=== PATIENT | female | born 1935 | race Caucasian/White ===

== ENCOUNTER 2018-03-25 16:47 | Outpatient (REF) | payer MEDICARE, BC, SELFPAY ==
[2018-03-25 19:34] LABS: HGB 12.5 g/dL (12.0-15.5); Mean Corp. HGB Concentration 33.8 g/dL (32.0-36.0); Mean Corpuscular Hemoglobin 32.1 pg (27.0-33.0); Mean Corpuscular Volume 94.9 fL (80-95); Mean Platelet Volume 12.5 fL (8.0-11.0); Platelet Count 191 x1000/uL (130-400); RBC Distribution Width 13.6 % (11.7-14.6); White Blood Cell Count 6.93 k/cumm (4.4-10.8)
[2018-03-25 19:49] LABS: ALT 23 U/L (12-78); Anion Gap 9.3 mmol/L (3-11); BUN 24 mg/dL (7-18); CO2 29.7 mmol/L (21.0-32.0); CREATININE 1.04 mg/dL (0.55-1.02); Chloride 105 mmol/L (98-107); Estimated GFR 50.86 (mL/min/1.73m2); Glucose 120 mg/dL (70-100); LDL CHOLESTEROL 96 mg/dL (<100); Potassium 3.9 mmol/L (3.5-5.1); Sodium 144 mmol/L (136-145)
== END 2018-03-25 17:07 ==
LOC: NCHCN 16:47
PROVIDERS: PCP Internal Medicine; Visit Provider Internal Medicine
DX: E78.5 Hyperlipidemia, unspecified (principal); I10 Essential (primary) hypertension; I65.23 Occlusion and stenosis of bilateral carotid arteries
CPT/HCPCS: 80048; 83721; 85027; 84460

== ENCOUNTER 2018-09-12 10:39 | Outpatient (REF) | payer MEDICARE, BC, SELFPAY ==
[2018-09-12 19:26] LABS: Abs Immature Grans 0.02 k/cumm (0.0-0.09); Absolute Basophil Count 0.04 k/cumm (0.0-0.2); Absolute Eosinophil Count 0.31 k/cumm (0.0-0.7); Absolute Lymphocyte Count 1.39 k/cumm (1.2-3.4); Absolute Monocyte Count 0.76 k/cumm (0.11-0.7); Absolute Neutrophil Count 6.73 k/cumm (1.2-6.7); Basophils % 0.4; Eosinophils % 3.4; HGB 13.5 g/dL (12.0-15.5); Immature Grans % 0.2; Mean Corp. HGB Concentration 32.9 g/dL (32.0-36.0); Mean Corpuscular Hemoglobin 31.4 pg (27.0-33.0); Mean Corpuscular Volume 95.3 fL (80-95); Mean Platelet Volume 12.4 fL (8.0-11.0); Monocytes % 8.2; Neutrophils % 72.8; Platelet Count 236 x1000/uL (130-400); RBC Distribution Width 13.6 % (11.7-14.6); White Blood Cell Count 9.25 k/cumm (4.4-10.8)
[2018-09-12 19:41] LABS: Anion Gap 9.4 mmol/L (3-11); BUN 21 mg/dL (7-18); CO2 28.6 mmol/L (21.0-32.0); CREATININE 0.93 mg/dL (0.55-1.02); Calcium 9.7 mg/dL (8.5-10.1); Chloride 103 mmol/L (98-107); Estimated GFR 57.72 (mL/min/1.73m2); Glucose 112 mg/dL (70-100); Potassium 3.9 mmol/L (3.5-5.1); Sodium 141 mmol/L (136-145)
[2018-09-12 21:16] LABS: ESR 25 MM/HR (0-30)
== END 2018-09-12 10:59 ==
LOC: NCHCN 10:39
PROVIDERS: PCP Internal Medicine; Visit Provider Internal Medicine
DX: I10 Essential (primary) hypertension (principal); E78.5 Hyperlipidemia, unspecified; M65.332 Trigger finger, left middle finger; Z98.61 Coronary angioplasty status
CPT/HCPCS: 80048; 85652; 85025

== ENCOUNTER 2019-09-11 20:09 | Outpatient (REF) | payer MEDICARE, BC, SELFPAY ==
[2019-09-11 20:18] LABS: D-Dimer 1077 ng/mlFEU (<500)
[2019-09-11 20:22] LABS: Hemoglobin A1C 6.3 % (3.8-5.6)
[2019-09-11 20:30] LABS: ALT 27 U/L (14-59); AST 22 U/L (15-37); Albumin 3.8 g/dL (3.4-5.0); Alkaline Phosphatase 71 U/L (46-116); Anion Gap 8.5 mmol/L (3-11); BUN 18 mg/dL (7-18); Bilirubin, Total 0.4 mg/dL (0.2-1.0); CO2 27.5 mmol/L (21.0-32.0); CREATININE 1.09 mg/dL (0.55-1.02); Calcium 9.5 mg/dL (8.5-10.1); Chloride 104 mmol/L (98-107); Estimated GFR 47.94 (mL/min/1.73m2); Glucose 131 mg/dL (74-106); NT-proBNP 238 pg/mL (<300); Potassium 3.5 mmol/L (3.5-5.1); Sodium 140 mmol/L (136-145); Total Protein 6.7 g/dL (6.4-8.2)
== END 2019-09-11 20:29 ==
LOC: NCHCN 20:09
PROVIDERS: PCP Internal Medicine; Visit Provider Internal Medicine
DX: R73.09 Other abnormal glucose (principal); I10 Essential (primary) hypertension; I42.8 Other cardiomyopathies; R60.0 Localized edema; F17.210 Nicotine dependence, cigarettes, uncomplicated
CPT/HCPCS: 80053; 83036; 83880; 85379

== ENCOUNTER 2020-02-26 14:19 | Outpatient (REF) | payer MEDICARE, BC, SELFPAY ==
[2020-02-26 19:51] LABS: TSH 2.89 uIU/mL (0.36-3.74); Vitamin B12 271 pg/mL (193-986)
== END 2020-02-26 14:39 ==
LOC: NCHCN 14:19
PROVIDERS: PCP Internal Medicine; Visit Provider Internal Medicine
DX: I25.5 Ischemic cardiomyopathy (principal); R73.09 Other abnormal glucose; G56.02 Carpal tunnel syndrome, left upper limb; I10 Essential (primary) hypertension
CPT/HCPCS: 82607; 84443

== ENCOUNTER 2020-04-02 14:20 | Outpatient (REF) | payer MEDICARE, BC, SELFPAY ==
--- NOTE | 2020-04-02 12:04 | SKI_PTH ---
PATIENT: Nay Mcknight LOC: [facility] U#:[id number] AGE/SX: 84/F ROOM: RE04/02/[address]: Jose Manuel Hatfield : 1935 BED: DIS: 04/02/2020 SPEC #: [id number] RECD: 04/02/20 18:15 STATUS: TONG REFrancisco #: [id number] DAVID: 04/02/20 12:[address]: Jose Manuel Hatfield DEPT: Surgical Specimen RECD BY: Tasia Stuart Tissues: 1 - SKIN BIOPSY(SHAVE/PUNCH) Procedures: SKIN LEVEL 4 Comments: [id number]
[2020-04-02 19:01] LABS: Abs Immature Grans 0.02 10^3/uL (0.0-0.06); Absolute Basophil Count 0.04 10^3/uL (0.0-0.2); Absolute Eosinophil Count 0.17 10^3/uL (0.0-0.7); Absolute Lymphocyte Count 1.21 10^3/uL (1.2-3.4); Absolute Neutrophil Count 5.92 10^3/uL (1.2-6.7); Basophils % 0.5; Eosinophils % 2.1; HCT 40.5 % (36.0-46.0); HGB 13.2 g/dL (11.2-15.7); Immature Grans % 0.3; Lymphocytes % 15.2; MCHC 32.6 % (32.0-36.0); MCV 95.1 fL (80-95); MPV 12.3 fL (8.0-11.0); Monocytes % 7.5; Neutrophils % 74.4; Nucleated RBC 0 %; Platelet Count 217 10^3/uL (130-400); RBC 4.26 10^6/uL (3.93-5.22); RDW 13.1 % (11.7-14.6); RDW-SD 45.7 fL; WBC 7.96 10^3/uL (4.4-10.8)
[2020-04-02 19:11] LABS: ALT 26 U/L (14-59); AST 17 U/L (15-37); Albumin 4.1 g/dL (3.4-5.0); Alkaline Phosphatase 83 U/L (46-116); Anion Gap 9.6 mmol/L (3-11); BUN 16 mg/dL (7-18); Bilirubin, Total 0.8 mg/dL (0.2-1.0); C-Reactive Protein 0.11 mg/dL (0.0-0.3); CO2 27.4 mmol/L (21.0-32.0); CREATININE 0.92 mg/dL (0.55-1.02); Calcium 9.6 mg/dL (8.5-10.1); Chloride 105 mmol/L (98-107); Glucose 112 mg/dL (74-106); Potassium 3.7 mmol/L (3.5-5.1); Sodium 142 mmol/L (136-145); Total Protein 7.1 g/dL (6.4-8.2)
[2020-04-02 19:45] LABS: ESR 15 mm/hr (0-30)
== END 2020-04-02 14:40 ==
LOC: NCHCN 14:20
PROVIDERS: PCP Internal Medicine; Visit Provider Internal Medicine
DX: L30.8 Other specified dermatitis (principal)
CPT/HCPCS: 80053; 85652; 85025; 86140; 88305

== ENCOUNTER 2020-11-18 12:55 | Outpatient (REF) | payer MEDICARE, BC, SELFPAY ==
[2020-11-18 19:22] LABS: HCT 36.7 % (36.0-46.0); HGB 11.9 g/dL (11.2-15.7); MCH 30.7 pg (27.0-33.0); MCHC 32.4 % (32.0-36.0); MCV 94.8 fL (80-95); MPV 13.5 fL (8.0-11.0); Platelet Count 208 10^3/uL (130-400); RBC 3.87 10^6/uL (3.93-5.22); RDW 13.2 % (11.7-14.6); RDW-SD 45.9 fL
[2020-11-18 19:23] LABS: ALT 38 U/L (14-59); AST 20 U/L (15-37); Albumin 3.9 g/dL (3.4-5.0); Alkaline Phosphatase 75 U/L (46-116); Anion Gap 8.4 mmol/L (3-11); BUN 23 mg/dL (7-18); Bilirubin, Total 0.6 mg/dL (0.2-1.0); CO2 27.6 mmol/L (21.0-32.0); CREATININE 0.9 mg/dL (0.55-1.02); Chloride 108 mmol/L (98-107); Estimated GFR 59.65 (mL/min/1.73m2); Glucose 97 mg/dL (74-106); Potassium 4.2 mmol/L (3.5-5.1); Sodium 144 mmol/L (136-145); Total Protein 7.1 g/dL (6.4-8.2)
== END 2020-11-18 12:56 | disposition home or self-care (01) ==
LOC: NCHCN 12:55
PROVIDERS: PCP Internal Medicine; Visit Provider Physician Assistant
DX: K92.1 Melena (principal); R19.7 Diarrhea, unspecified
CPT/HCPCS: 80053; 85027

== ENCOUNTER 2021-06-27 18:21 | Outpatient (REF) | payer MEDICARE, BC, SELFPAY ==
[2021-06-27 20:30] LABS: ESR 25 mm/hr (0-30)
[2021-06-27 20:40] LABS: Anion Gap 12.2 mmol/L (3-11); BUN 19 mg/dL (7-18); CO2 25.8 mmol/L (21.0-32.0); Calcium 9.7 mg/dL (8.5-10.1); Chloride 104 mmol/L (98-107); Estimated GFR 52.82 (mL/min/1.73m2); Glucose 107 mg/dL (74-106); Sodium 142 mmol/L (136-145)
[2021-06-28 18:22] LABS: Rheumatoid Factor <8.6 IU/mL (<12.0)
[2021-06-29 09:32] LABS: Cyclic Citrullinated Peptide <2.5 U/mL (<5.0)
[2021-06-30 14:22] LABS: ANA Interpretation Positive (Negative)
== END 2021-06-27 18:22 | disposition home or self-care (01) ==
LOC: NCHCN 18:21
PROVIDERS: PCP Internal Medicine; Visit Provider Internal Medicine
DX: M06.9 Rheumatoid arthritis, unspecified (principal)
CPT/HCPCS: 80048; 85652; 86200; 86038; 86140; 86431

== ENCOUNTER 2022-02-10 12:20 | Outpatient (REF) | payer MEDICARE, BC, SELFPAY ==
--- NOTE | 2022-02-10 11:52 | SKI_PTH ---
PATIENT: Nay Mcknight LOC: [facility] U#:[id number] AGE/SX: 86/F ROOM: RE02/10/[address]: ROME Frost : 1935 BED: DIS: 02/10/2022 SPEC #: [id number] RECD: 02/10/22 18:24 STATUS: TONG REFrancisco #: [id number] DAVID: 02/10/22 11:[address]: Jarad Traylor DEPT: Surgical Specimen RECD BY: Tasia Stuart ENTERED: 02/10/22 18:26 SP TYPE: DONNELL DONALDSON DR: Jose Manuel Hatfield Tissues: 1 - SKIN BIOPSY(SHAVE/PUNCH) 2 - SKIN BIOPSY(SHAVE/PUNCH) Procedures: SKIN LEVEL 4 Comments: [id number]
== END 2022-02-10 12:21 | disposition home or self-care (01) ==
LOC: LBN 12:20
PROVIDERS: PCP Internal Medicine; Visit Provider Physician Assistant
DX: C44.319 Basal cell carcinoma of skin of other parts of face (principal); C44.41 Basal cell carcinoma of skin of scalp and neck
CPT/HCPCS: 88305

== ENCOUNTER 2022-03-20 17:26 | Outpatient (REF) | payer MEDICARE, BC, SELFPAY ==
[2022-03-20 19:04] LABS: ESR 12 mm/hr (0-30); HCT 40.6 % (36.0-46.0); HGB 13.5 g/dL (11.2-15.7); MCH 31.3 pg (27.0-33.0); MCHC 33.3 % (32.0-36.0); MCV 94 fL (80-95); MPV 11.8 fL (8.0-11.0); Platelet Count 238 10^3/uL (130-400); RBC 4.32 10^6/uL (3.93-5.22); RDW 12.4 % (11.7-14.6); RDW-SD 42.9 fL; WBC 6.29 10^3/uL (4.4-10.8)
[2022-03-20 19:09] LABS: Albumin 4.3 g/dL (3.4-5.0); Anion Gap 8.1 mmol/L (3-11); BUN 23 mg/dL (7-18); CO2 28.9 mmol/L (21.0-32.0); CREATININE 1.3 mg/dL (0.55-1.02); Calcium 9.9 mg/dL (8.5-10.1); Chloride 103 mmol/L (98-107); Glucose 111 mg/dL (74-106); Potassium 3.9 mmol/L (3.5-5.1); Sodium 140 mmol/L (136-145)
[2022-03-20 19:25] LABS: PHOSPHORUS 3.2 mg/dL (2.6-4.7)
== END 2022-03-20 17:27 | disposition home or self-care (01) ==
LOC: NCHCN 17:26
PROVIDERS: PCP Internal Medicine; Visit Provider Internal Medicine
DX: S32.009S Unspecified fracture of unspecified lumbar vertebra, sequela (principal)
CPT/HCPCS: 80069; 85027; 85652

== ENCOUNTER 2023-01-17 11:22 | Outpatient (REF) | payer MEDICARE, BC, SELFPAY ==
[2023-01-17 20:12] LABS: ALT 31 U/L (14-59); AST 25 U/L (15-37); Albumin 3.9 g/dL (3.4-5.0); Alkaline Phosphatase 77 U/L (46-116); Anion Gap 7.7 mmol/L (3-11); BUN 21 mg/dL (7-18); Bilirubin, Total 0.7 mg/dL (0.2-1.0); CO2 28.3 mmol/L (21.0-32.0); Calcium 9.6 mg/dL (8.5-10.1); Chloride 106 mmol/L (98-107); Estimated GFR 54.87 (mL/min/1.73m2); Glucose 107 mg/dL (74-106); Potassium 3.8 mmol/L (3.5-5.1); Sodium 142 mmol/L (136-145); Total Protein 7.1 g/dL (6.4-8.2)
[2023-01-17 20:24] LABS: HCT 37.2 % (36.0-46.0); HGB 12.4 g/dL (11.2-15.7); MCH 31.2 pg (27.0-33.0); MCHC 33.3 % (32.0-36.0); MCV 94 fL (80-95); Platelet Count 195 10^3/uL (130-400); RBC 3.97 10^6/uL (3.93-5.22); RDW 13.1 % (11.7-14.6); RDW-SD 45.1 fL; WBC 4.29 10^3/uL (4.4-10.8)
[2023-01-18 09:05] LABS: ESR (LRH) 6 mm/hr
== END 2023-01-17 11:23 | disposition home or self-care (01) ==
LOC: NCHCN 11:22
PROVIDERS: PCP Internal Medicine; Visit Provider Physician Assistant
DX: I10 Essential (primary) hypertension (principal); M35.3 Polymyalgia rheumatica; I25.10 Atherosclerotic heart disease of native coronary artery without angina pectoris; Z98.61 Coronary angioplasty status
CPT/HCPCS: 80053; 85027; 85652

== ENCOUNTER 2023-10-12 12:19 | Outpatient (REF) | payer MEDICARE, BC, SELFPAY ==
[2023-10-12 19:12] LABS: ALT 27 U/L (14-59); Anion Gap 9.2 mmol/L (3-11); BUN 20 mg/dL (7-18); CO2 27.8 mmol/L (21.0-32.0); Calcium 9.4 mg/dL (8.5-10.1); Chloride 106 mmol/L (98-107); Creatine Kinase 77 U/L (26-192); Estimated GFR 54.53 (mL/min/1.73m2); Glucose 103 mg/dL (74-106); Potassium 3.6 mmol/L (3.5-5.1); Sodium 143 mmol/L (136-145)
[2023-10-12 19:23] LABS: Calculated LDL 58 mg/dL (<100); Cholesterol 140 mg/dL (<200); HDL Cholesterol 39 mg/dL (40-60); Triglyceride 215 mg/dL (<150)
== END 2023-10-12 12:20 | disposition home or self-care (01) ==
LOC: NCHCN 12:19
PROVIDERS: PCP Internal Medicine; Visit Provider Internal Medicine
DX: I10 Essential (primary) hypertension (principal); E78.5 Hyperlipidemia, unspecified
CPT/HCPCS: 80048; 80061; 82550; 84460

== ENCOUNTER 2023-11-12 15:22 | Outpatient (REF) | payer MEDICARE, BC, SELFPAY ==
[2023-11-12 19:44] LABS: Bilirubin Negative (Negative); Blood Negative (Negative); Clarity Clear (Clear); Glucose 500 mg/dL (Negative); Ketones Negative (Negative); Leukocyte Esterase Negative (Negative); Nitrite Negative (Negative); Specific Gravity 1.025 (1.005-1.025)
[2023-11-12 20:07] LABS: Bacteria Negative HPF (Negative); C & S Indicated? No/Sq. Contamination; Casts Negative LPF (Negative); Crystals Negative HPF (Negative); Epithelial Cells Moderate HPF (Negative); Mucus Negative (Negative); Other Cells Negative (Negative); RBC 0-2 HPF (0-2); WBC 0-2 HPF (0-5)
== END 2023-11-12 15:23 | disposition home or self-care (01) ==
LOC: NCHCN 15:22
PROVIDERS: PCP Internal Medicine; Visit Provider Internal Medicine
DX: R10.31 Right lower quadrant pain (principal); R82.998 Other abnormal findings in urine
CPT/HCPCS: 81003; 81015

== ENCOUNTER → 2024-03-04 10:40 | Outpatient (BNVA) | payer MEDICARE, BC, SELFPAY | PROVIDERS: PCP Internal Medicine; Referring Provider Internal Medicine; Visit Provider Nurse Practitioner Gerontology | DX: N39.46 Mixed incontinence (principal); N20.0 Calculus of kidney; I10 Essential (primary) hypertension | CPT/HCPCS: 51798; 81003; 99205 ==

== ENCOUNTER 2024-08-22 14:50 | Outpatient (REF) | payer MEDICARE, SELFPAY ==
[2024-08-22 19:14] LABS: HCT 40.1 % (36.0-46.0); HGB 13.2 g/dL (11.2-15.7); MCH 31.6 pg (27.0-33.0); MCHC 32.9 % (32.0-36.0); MCV 96 fL (80-95); MPV 12.5 fL (8.0-11.0); Platelet Count 184 10^3/uL (130-400); RBC 4.18 10^6/uL (3.93-5.22); RDW 13.5 % (11.7-14.6); WBC 6.15 10^3/uL (4.4-10.8)
[2024-08-22 19:28] LABS: ALT 26 U/L (14-59); AST 21 U/L (15-37); Albumin 3.8 g/dL (3.4-5.0); Alkaline Phosphatase 77 U/L (46-116); Anion Gap 9.9 mmol/L (3-11); BUN 22 mg/dL (7-18); Bilirubin, Total 1.1 mg/dL (0.2-1.0); CO2 27.1 mmol/L (21.0-32.0); CREATININE 0.9 mg/dL (0.55-1.02); Calcium 9.8 mg/dL (8.5-10.1); Calculated LDL 70 mg/dL (<100); Chloride 105 mmol/L (98-107); Cholesterol 155 mg/dL (<200); Estimated GFR 61.87 (mL/min/1.73m2); Glucose 109 mg/dL (74-106); HDL Cholesterol 40 mg/dL (>or=50); Sodium 142 mmol/L (136-145); Total Protein 7.1 g/dL (6.4-8.2); Triglyceride 227 mg/dL (<150)
== END 2024-08-22 14:51 | disposition home or self-care (01) ==
LOC: NCHCN 14:50
PROVIDERS: PCP Internal Medicine; Visit Provider Internal Medicine
DX: E78.5 Hyperlipidemia, unspecified (principal); R10.9 Unspecified abdominal pain
CPT/HCPCS: 80053; 80061; 85027

== ENCOUNTER 2024-10-31 19:39 | Outpatient (REF) | payer MEDICARE, SELFPAY ==
[2024-10-31 19:31] LABS: HCT 37.1 % (36.0-46.0); HGB 12.4 g/dL (11.2-15.7); MCH 31.7 pg (27.0-33.0); MCHC 33.4 % (32.0-36.0); MCV 95 fL (80-95); MPV 12.6 fL (8.0-11.0); Platelet Count 178 10^3/uL (130-400); RBC 3.91 10^6/uL (3.93-5.22); RDW 13.8 % (11.7-14.6); RDW-SD 48.6 fL; WBC 5.34 10^3/uL (4.4-10.8)
[2024-10-31 19:46] LABS: ALT 25 U/L (14-59); AST 20 U/L (15-37); Albumin 3.8 g/dL (3.4-5.0); Alkaline Phosphatase 73 U/L (46-116); Anion Gap 8.4 mmol/L (3-11); BUN 22 mg/dL (7-18); Bilirubin, Total 1.1 mg/dL (0.2-1.0); CO2 29.6 mmol/L (21.0-32.0); Calcium 9.3 mg/dL (8.5-10.1); Chloride 103 mmol/L (98-107); Estimated GFR 43.54 (mL/min/1.73m2); Glucose 114 mg/dL (74-106); Potassium 3.6 mmol/L (3.5-5.1); Sodium 141 mmol/L (136-145); Total Protein 7.0 g/dL (6.4-8.2)
== END 2024-10-31 19:40 | disposition home or self-care (01) ==
LOC: NCHCN 19:39
PROVIDERS: PCP Internal Medicine; Visit Provider Internal Medicine
DX: K57.92 Diverticulitis of intestine, part unspecified, without perforation or abscess without bleeding (principal)
CPT/HCPCS: 80053; 85027